=== PATIENT | female | born 2005 | race Hispanic/Latino ===

== ENCOUNTER 2024-09-17 19:36 | Emergency (ER) | payer SELFPAY ==
[~2024-09-17] VITALS: Ht 152.4 cm; Wt 53.5 kg
--- NOTE | 2024-09-17 20:00 | ERN ---
ED Note History of Present Illness Stated Complaint: CYST PAIN Chief Complaint: Wound Check Time Seen by MD: 19:37 Time Seen by Midlevel: 19:37 Dictation: The patient is a 19-year-old female with no past medical history who presents to the emergency department with complaints of cyst to her upper buttocks onset yesterday. Patient denies any fevers. Allergies: Coded Allergies: No Known Allergies (Unverified Allergy, Unknown, 09/17/24) Past Medical History Past Medical History: No Pertinent History Surgical History: None LMP: Sep 05, 2024 RN Note Reviewed/Agreed w/PFSH: Yes Review of System Dictation Constitutional: Negative for fever,chills, and weight loss Eyes: Negative for injury, pain,redness, and discharge ENT: Negative for injury,pain or swelling Cardiovascular: Negative for chest pain, palpitations, and edema Respiratory: Negative for shortness of breath, cough, and wheezing, Abdomen/GI: Negative for abdominal pain, nausea, vomiting, diarrhea, and constipation Back: Negative for injury and pain : Negative for injury, bleeding and discharge MS/Extremity: Negative for injury and deformity Skin: Negative for rash, and discoloration positive for cyst Neuro: Negative for headache, weakness, numbness, tingling, and seizure Psych: Negative for suicide ideation, homicidal ideation, and hallucinations Initial Vital Sign VS Vital Signs Date Time Temp Pulse Resp B/P (MAP) Pulse Ox O2 Delivery O2 Flow Rate FiO2 09/17/24 19:39 100.6 104 19 129/85 98 Room Air 0 09/17/24 19:57 21 Physical Exam Dictation Vital Signs reviewed General Appearance: Alert, oriented x 3, no acute distress, well developed, nourished. Head and Face: non-traumatic. Eyes: PERRL, pink conjunctivas, eyelid no trauma, anterior chamber with arcus senilis. Ears: Pinnas intact and no signs of trauma or erythema ear canals clear and no discharge TM no erythema Nose: No discharge, no bleeding. Oropharynx: Mouth normal, tongue pink. pharynx clear,no erythema, tonsils no exudates, no abscesses noted, mucous membrane moist Neck: Supple, non-tender, no thyromegaly, no masses, no JVD, no bruits Breast:Deferred Chest:No tenderness, no crepitus, no paradoxical movement, no retractions Lungs:Clear, well-ventilated, symmetric, no rales, no wheezing, no rhonchi, no stridor, good breath sounds bilaterally Heart: Regular rate, regular rhythm, no murmur, no gallops Vascular: no peripheral edema, Abdomen: Soft, positive bowel sounds, nondistended, no guarding, nontender, no rebound, no masses no hepatomegaly, no splenomegaly, no Anderson's sign, no hernias. Rectal: Deferred Genital: Deferred Neurological: Normal speech, motor function intact, sensory function intact Musculoskeletal: Neck nontender, full range of motion, back nontender, full range of motion, Extremities: nontender, full range of motion Skin: Color pink, dry, no turgor, no rash, no lacerations, no abrasions, no contusions.3 cm in diameter erythema and induration to mid upper buttocks more towards the left, no drainage. Lymphatic: Deferred Results (Laboratory/Radiology) Labs Reviewed?: Yes ED Course ED Course Orders Procedure Category Date Status Time Clindamycin 150mg Cap PHA 09/17/24 In Process (Cleocin 150mg Cap 20:00 Lidocaine Hcl 1% 20ml PHA 09/17/24 In Process Vial (Lidocaine Hc 20:00 Hydrocodone/Apap PHA 09/17/24 In Process 5/325 ([place] 5/325mg) 20:00 I&D Set Up Bedside CPOE 09/17/24 Transmitted (Er) 19:54 Current Medications Medications (Trade) Dose Ordered Sig/Heriberto Route PRN Reason Start Time Stop Time Status Last Admin Dose Admin Acetaminophen/ Hydrocodone Bitart (NORco 5/325MG) 1 tab ONCE PO 09/17/24 20:00 09/17/24 23:59 09/17/24 20:11 Clindamycin HCl (Cleocin 150mg Cap) 300 mg ONCE PO 09/17/24 20:00 09/17/24 23:59 09/17/24 20:11 Lidocaine HCl (Lidocaine HCl 1% 20ml Vial) 10 ml ONCE INJ 09/17/24 20:00 09/17/24 23:59 09/17/24 20:11 Vital Signs Date Time Temp Pulse Resp B/P (MAP) Pulse Ox O2 Delivery O2 Flow Rate FiO2 09/17/24 19:57 99.0 93 15 106/66 98 Room Air* 0 21 09/17/24 19:39 100.6 104 19 129/85 98 Room Air 0 Medical Decision Making MDM The patient is a 19-year-old female with no past medical history who presents to the emergency department with complaints of cyst to her upper buttocks onset yesterday. Patient denies any fevers. Incision and drainage was done. There was minimal drainage. Patient tolerated well. Patient will be refereed to general surgery for removal of cyst. Patient reported she is already on Bactrim that she received by her PCP today. Patient with no fevers or chills. Stable vital signs. Differential diagnosis: Abscess, cellulitis, pilonidal cyst Need for hospitalization: Patient does not meet criteria for hospitalization. There are no social concerns with this patient. Procedure Blade Size: 11 I & D Procedure: no betadine prep Progress Verbal consent for the procedure was obtained. A timeout protocol was performed prior to initiating the procedure. The area was prepared and draped in the usual, sterile manner. The site was anesthetized with 1% lidocaine without epinephrine. A linear incision 1cm along the local skin lines was made and the sanguinous material expressed. The abscess was explored thoroughly and sequestered pockets were opened. Bleeding was minimal. The patient tolerated the procedure well without complications. Standard post- procedure care is explained and return precautions are given. DX & DISP Disposition: Discharge Departure Impression: Primary Impression: Pilonidal cyst Condition: Stable Scripts Meloxicam (Meloxicam) 15 Mg Tablet 1 TAB PO DAILY for 20 Days, #30 TAB 0 Refills Prov: SULY PLASENCIA ASSISTANT CASE MANAGER 09/17/24 Additional Instructions: Please continue taking your antibiotics as prescribed by your PCP. Follow up with general surgery to evaluate the need to removed your cyst. If anything worsens please return to ER. FOLLOW-UP WITH PRIMARY CARE PROVIDER IN 1 TO 2 DAYS. TAKE MEDICATIONS DIRECTED HERE IN THE EMERGENCY ROOM. OKAY TO CONTINUE HOME MEDICATIONS UNLESS OTHERWISE DISCUSSED DURING YOUR VISIT IN THE EMERGENCY ROOM TODAY. RETURN TO YOUR NEAREST EMERGENCY ROOM IF SYMPTOMS WORSEN OR IF THERE IS NO IMPROVEMENT. CALL 911 IF YOU NEED IMMEDIATE ASSISTANCE. TAKE TYLENOL [id number] NE EDED AND IF NO CONTRAINDICATIONS ARE PRESENT. INCREASE ORAL HYDRATION. A WOUND CULTURE OR URINE CULTURE WAS ORDERED HERE IN THE EMERGENCY ROOM DEPARTMENT PLEASE FOLLOW-UP WITH PRIMARY CARE PROVIDER AND ADVISE THEM TO GET REPEAT PORTS FROM OUR FACILITY. IF YOU HAD ANY DUNCAN WRAP/SPLINTS THAT WERE APPLIED HERE, PLEASE DO NOT REMOVE THEM UNTIL YOU SEE YOUR PRIMARY CARE OR SPECIALTY. Referrals: SELF,REFERRAL (PCP) MONIQUE ROTH MD Time of Disposition: 20:30 I have reviewed the case, and I agree with, Diagnosis and Plan SULY PLASENCIA [facility] Sep 17, 2024 20:00
[2024-09-17] MEDS: HYDROcodone/APAP 5/325 1 TAB TABLET PO SCH (20:11)
[2024-09-17] MEDS: CLINDAMYCIN 150 MG CAP PO SCH (20:11)
[2024-09-17] MEDS: LIDOCAINE HCL 1% 20 ML VIAL INJ SCH (20:11)
[2024-09-17] MEDS ORDERED: MELO-108 PO (20:36)
[2024-09-17 20:52] VITALS: BP 115/75; PULSE 90; RESP 18; TEMP 98.7; O2SAT 99
== END 2024-09-17 21:07 | disposition home or self-care (01) ==
LOC: EDH 19:36
DX: L05.91 Pilonidal cyst without abscess (principal)
CPT/HCPCS: 10080; 99283